=== PATIENT | female | born 1985 | race Caucasian/White ===

== ENCOUNTER 2017-09-11 18:52 | Emergency (ER) | payer OTHER ==
--- NOTE | 2017-09-11 20:10 | OBHP ---
Datetime: 09/11/2017 20:06 IP Adm Impression: , intrauterine IP Admit Plan: Observation/Evaluation Admit Comment, IP Provider: Pt presents with c/o decresed movements. No c/o CTX, VB or LOF. Pt received PNC at [facility]. No complications. Pt started feeling FM in L_D. NST- Reactive Precautions discussed DC home. FHR - Baseline A Provider: 130 Contraction Comments Provider: None Gestation - Est Wks by US: 30.0 EGA AdmitDate IP: 30.4 Vital Signs Provider: Reviewed IP Chief Complaint: Decreased movement NICHD Variability Prov Fetus A: Moderate 6-25bpm NICHD Accel Fetus A IP Provider: [id number] FHR Category Provider Fetus A: Category I NICHD Decel Fetus A IP Provider: None
[2017-09-12 00:23] VITALS: BP 102/62; PULSE 84; RESP 18; TEMP 98.7; O2SAT 98
== END 2017-09-11 20:14 | disposition home or self-care (01) ==
LOC: C.EROB 18:52
DX: O36.8130 Decreased fetal movements, third trimester, not applicable or unspecified (principal); Z3A.30 30 weeks gestation of pregnancy